=== PATIENT | female | born 1990 | race African-American/Black ===

== ENCOUNTER → 2021-12-07 | Outpatient (CLI) | payer OTHER | LOC: MHCPAIN 08:45 | DX: M47.896 Other spondylosis, lumbar region (principal); M54.6 Pain in thoracic spine; G89.29 Other chronic pain | CPT/HCPCS: G0463 ==

== ENCOUNTER → 2022-04-05 | Outpatient (CLI) | payer OTHER | LOC: MHCPAIN 15:07 | DX: M47.817 Spondylosis without myelopathy or radiculopathy, lumbosacral region (principal); M53.3 Sacrococcygeal disorders, not elsewhere classified; M54.59 Other low back pain | CPT/HCPCS: G0463 ==

== ENCOUNTER → 2022-05-15 | Outpatient (CLI) | payer OTHER | LOC: MHCPAIN 13:45 | DX: M47.817 Spondylosis without myelopathy or radiculopathy, lumbosacral region (principal); M53.3 Sacrococcygeal disorders, not elsewhere classified; M54.50 Low back pain, unspecified | CPT/HCPCS: G0463 ==